=== PATIENT | male | born 1990 | race African-American/Black ===

== ENCOUNTER → 2023-11-28 13:11 | Outpatient (BNVA) | payer OTHER, SELFPAY | PROVIDERS: Visit Provider Physician Assistant Medical | DX: S46.211A Strain of muscle, fascia and tendon of other parts of biceps, right arm, initial encounter (principal); X50.3XXA Overexertion from repetitive movements, initial encounter | CPT/HCPCS: 99202 ==

== ENCOUNTER → 2023-12-01 14:54 | Outpatient (BNVA) | payer OTHER, SELFPAY | PROVIDERS: Visit Provider Registered Nurse | DX: S46.211A Strain of muscle, fascia and tendon of other parts of biceps, right arm, initial encounter (principal); X50.3XXA Overexertion from repetitive movements, initial encounter | CPT/HCPCS: 99213 ==

== ENCOUNTER → 2023-12-13 15:00 | Outpatient (BNVA) | payer OTHER, SELFPAY | PROVIDERS: Visit Provider Registered Nurse | DX: S46.211D Strain of muscle, fascia and tendon of other parts of biceps, right arm, subsequent encounter (principal); X50.3XXD Overexertion from repetitive movements, subsequent encounter | CPT/HCPCS: 99213 ==

== ENCOUNTER 2024-05-01 14:48 | Outpatient (AMB) | payer OTHER, MEDICAID, SELFPAY ==
--- NOTE | 2024-05-01 14:48 | MHC.OFFVIS ---
Vital Signs 05/01/24 14:53 Height 5 ft 7 in Weight 178 lb 9.191 oz BMI 28.0 BP 118/76 Blood Pressure Location Rt brachial Position Sitting Pulse 84 Pulse Source Pulse Oximeter Intake Visit Reasons: Joint Pain/CM Intake Note: NEW Patient presents today to establish treatment for Join Pain: Pain scale 1-10, The patient states that the pain varies: Certified Alcohol And Drug Counselor Required: Yes Certified Alcohol And Drug Counselor Language: Moroccan Certified Alcohol And Drug Counselor Services: Certified Alcohol And Drug Counselor Present Certified Alcohol And Drug Counselor Name: Juan [id number]) Information Interpreted: clinical only Accompanied by: Self / Same As Patient Allergies No Known Allergies Allergy (Verified 05/01/24 15:25) Medication List - Last Reconciled 05/01/24 by Karla Kaye MD diclofenac sodium 1% 2 grams topical QID PRN omeprazole 40 mg PO BID ondansetron HCl 4 mg PO Q8H PRN riboflavin (vitamin B2) 400 mg PO DAILY sumatriptan succinate 25 mg PO ONCE PRN HPI Comments Details: Patient is a 33-year-old male with chronic headaches who presents for evaluation of back pain Patient states that he started having back pain in 2022, at that time he was in [place]. Denies antecedent trauma. Worked in [employer]. The pain is worse at night, making it difficult for him to go to bed. Denies prolonged AM stiffness, middle of night waking. Pain is worse with movement, better with rest. Now the pain occurs when he is working all day or after a long day of work He had an accident at work this Jul 2023 and now has neck and upper arm pain States that at his work he looks down most of the day which he thinks is contributing to his neck pain Denies history of heel pain, dactylitis, psoriasis or rashes, diarrhea. No history of scleritis or eye inflammation [facility] Medical History (Updated 05/01/24 @ 16:09 by Karla Kaye MD) Back pain Headache Arthralgia H. pylori infection Epigastric pain Chronic lower back pain External hemorrhoid Surgical History (Updated 05/01/24 @ 15:04 by NAVIN Delgado) No pertinent past surgical history Family History (Updated 05/01/24 @ 15:05 by NAVIN Delgado) Father No problems noted. Mother No problems noted. Social History (Updated 05/01/24 @ 15:04 by NAVIN Delgado) Alcohol intake: current Alcohol intake frequency: does not drink Patient Tobacco Use Status: Never used Tobacco Review of Systems Const Details: Review of Systems Constitutional: Denies fever, chills, weight loss ENT: Denies vision changes, eye pain or eye redness, dental caries, dry mouth GI: Denies nausea, vomiting, diarrhea, abdominal pain, change in BM Pulm: Denies SOB, MCKINLEY, hemoptysis, wheezing Cards: Denies chest pain, palpitations Skin: Denies Raynaud's, rash, nail changes, photosensitivity, COPPER TAPPER: Denies headaches, weakness, paresthesias, recurrent falls MSK: as per HPI All other systems reviewed and are unremarkable except noted above Physical Exam Vital Signs: Last Vital Signs Pulse 84 05/01/24 14:53 BP 118/76 05/01/24 14:53 BMI result Body Mass Index 28.0 Physical Examination CONSTITUITIONAL Patient alert and cooperative. Well appearing and in no apparent painful distress HEENT Conjunctiva and sclera clear. ?Pupils equal round and reactive to light. ?No lymphadenopathy. ? CHEST/RESPIRATORY SYSTEM Normal respiratory effort and able to speak in complete sentences. ?Clear to auscultation bilaterally. ?No crackles, rales, rhonchi, wheezes heard. CARDIAC SYSTEM Regular rate and rhythm. ?S1 and S2 heard no murmurs. ?Radial pulses intact bilaterally MSK Hands: ?Good insurance agency manager strength bilaterally - 5/5. ?No deformities noted. ?No synovitis noted to the MCPs, PIPs or DIPs. ?No tenderness to palpation of these joints. Wrists: ?Full range of motion at the wrists without pain. ?No tenderness to palpation or synovitis noted to the wrists. Elbows: Full range of motion without pain. No tenderness, weakness, swelling, increased warmth or erythema. Shoulders: Full range of motion without pain. No tenderness, weakness, swelling, increased warmth or erythema. Hips: Full range of motion without pain. Knees: ?Full range of motion. ?No tenderness, swelling, increased warmth or erythema.?No effusion or crepitations Ankles: Full range of motion. ?No tenderness, swelling, increased warmth or erythema.?No tenderness on palpation of the achilles tendon or insertion. Feet: ?Negative squeeze test. ?No tenderness to palpation or swelling of the MTPs. Normal Scober's test SKIN Skin intact without rashes. Results Reviewed Results Reviewed: No results seen Assessment & Plan Assessment & Plan (1) Back pain: Code(s): M54.9 - Dorsalgia, unspecified Category: Medical Qualifiers: Back pain location: low back pain Chronicity: chronic Back pain laterality: midline Sciatica presence: without sciatica Qualified Code(s): M54.50 - Low back pain, unspecified; G89.29 - Other chronic pain Plan: #Back pain At this time, the history and exam is not consistent with ank spojac. He has a normal Eugenio's test and his pain is not improved with movement. Will check SI joint XRs, MRI of SI joints, L spine XR, Neck XR Will check HLA B27, ESR, CRP, CBC, CMP RTC Jun 2024 Plan I spent 45 minutes reviewing the record and labs, seeing the patient, discussing the treatment plan and documenting in the medical record ? Orders: Orders Complete Blood Count Auto Diff Today M54.9 - Dorsalgia, unspecified C Reactive Protein Today M54.9 - Dorsalgia, unspecified T Spot TB Today M54.9 - Dorsalgia, unspecified HLA B27 Today M54.9 - Dorsalgia, unspecified XR lumbar spine 4V min Today M54.9 - Dorsalgia, unspecified XR cervical spine 4V Today M45.9 - Ankylosing spondylitis of unspecified sites in spine MR pelvis wo con Today M45.9 - Ankylosing spondylitis of unspecified sites in spine Rheumatoid Factor Today M25.50 - Pain in unspecified joint Cyclic Citrullinated Peptide Today M25.50 - Pain in unspecified joint Comprehensive Met. Panel Today M54.9 - Dorsalgia, unspecified Erythrocyte Sedimentation Rate Today M54.9 - Dorsalgia, unspecified XR sacroiliac joint min 3V Today M54.9 - Dorsalgia, unspecified Medications: New naproxen 500 mg PO BID 90 days 180 tabs 0RF G89.29 - Other chronic pain, M54.50 - Low back pain, unspecified Coding Level of Care Code New Pt Level 4 (11394) Diagnoses Chronic midline low back pain without sciatica M54.50; G89.29 Back pain location: low back pain Chronicity: chronic Back pain laterality: midline Sciatica presence: without sciatica
[2024-05-01 14:53] VITALS: BP 118/76; PULSE 84; BMI 28.0
== END 2024-05-01 16:18 | disposition home or self-care (01) ==
PROVIDERS: Visit Provider Student in an Organized Health Care Education/Training Program
DX: M54.50 Low back pain, unspecified (principal); G89.29 Other chronic pain
CPT/HCPCS: 99204

== ENCOUNTER → 2024-05-01 14:48 | Outpatient (BNVA) | payer OTHER, SELFPAY | PROVIDERS: Visit Provider Student in an Organized Health Care Education/Training Program | DX: M54.50 Low back pain, unspecified (principal); G89.29 Other chronic pain | CPT/HCPCS: 99202 ==

== ENCOUNTER 2024-05-06 16:21 | Outpatient (REF) | payer OTHER, MEDICAID, SELFPAY ==
[2024-05-06 16:40] LABS: MANUAL DIFF FLAG NO
[2024-05-06 17:11] LABS: Basophils Absolute Auto 0.1 X10*3/uL (0.0-0.2); Basophils Percent Auto 1.1 % (0-2); Eosinophils Absolute Auto 0.1 X10*3/uL (0.0-0.4); Eosinophils Percent Auto 2.3 % (0-4); Hematocrit 42.7 % (42.0-52.0); Hemoglobin 14.7 g/dl (14.0-18.0); Imm Gran Abs Auto 0.01 X10*3/uL (0.00-0.03); Imm Gran Pct Auto 0.2 % (0.0-0.4); Lymphocytes Absolute Auto 2.3 X10*3/uL (1.2-4.9); Lymphocytes Percent Auto 47.8 % (20-40); Mean Corpuscular HGB Conc 34.4 g/dl (31.0-36.0); Mean Corpuscular Hemoglobin 27.5 pg (27.0-33.0); Monocytes Absolute Auto 0.4 X10*3/uL (0.1-1.2); Monocytes Percent Auto 9.1 % (2-11); Neutrophils Absolute Auto 1.9 x10*3/uL (2.0-8.3); Neutrophils Percent Auto 39.5 % (45-73); Platelet Count 275 X10*3/uL (160-400); Red Blood Count 5.34 X10*6/uL (4.60-5.80); Red Cell Distribution Width 11.9 % (11.0-16.0); White Blood Count 4.7 X10*3/uL (4.8-10.8)
[2024-05-06 17:49] LABS: Alanine Aminotransferase 43 U/L (0-40); Albumin Level 4.7 g/dL (3.5-5.0); Alkaline Phosphatase 90 U/L (39-117); Anion Gap 12 (12-20); Aspartate Amino Transferase 27 U/L (5-37); Bilirubin Total 0.3 mg/dL (0.0-1.0); Blood Urea Nitrogen 11 mg/dL (9-16); C Reactive Protein < 0.10 mg/dL (< or = 0.50); Calcium 9.8 mg/dL (8.4-10.2); Carbon Dioxide 26 mmol/L (22-29); Chloride 106 mmol/L (96-108); Estimated Glomerular Filt Rate > 60; Glucose Random 97 mg/dL (60-115); Potassium 4.2 mmol/L (3.3-5.1); Sodium 140 mmol/L (135-145); Total Protein 7.8 g/dL (6.5-8.0)
[2024-05-06 17:52] LABS: Rheumatoid Factor < 13.0 IU/mL (<15.0)
[2024-05-06 18:03] LABS: Erythrocyte Sedimentation Rate 2 MM/HR (0-15)
[2024-05-08 07:43] LABS: Cyclic Citrullinated Peptide 57 UNITS
[2024-05-09 08:14] LABS: TS Negative Control Passed; TS Panel A 131; TS Panel B 199; TS Positive Control Passed; TSpotTB Positive (Negative)
[2024-05-09 11:14] LABS: HLA B27 Negative (Negative)
== END 2024-05-06 16:22 | disposition home or self-care (01) ==
LOC: HO.XRAY 16:21
PROVIDERS: PCP Internal Medicine; Visit Provider Student in an Organized Health Care Education/Training Program
DX: M54.9 Dorsalgia, unspecified (principal); M25.50 Pain in unspecified joint; M45.9 Ankylosing spondylitis of unspecified sites in spine
CPT/HCPCS: 36415; 72050; 72110; 72202; 80053; 85025; 85652; 86140; 86200; 86431; 86481; 86812

== ENCOUNTER 2024-05-28 15:52 | Outpatient (REF) | payer MEDICAID, SELFPAY | END 2024-05-28 15:53 | disposition home or self-care (01) | LOC: HO.MRI 15:52 | PROVIDERS: PCP Internal Medicine; Visit Provider Student in an Organized Health Care Education/Training Program | DX: M45.9 Ankylosing spondylitis of unspecified sites in spine (principal) | CPT/HCPCS: 72195 ==

== ENCOUNTER → 2024-07-03 14:24 | Outpatient (BNVA) | payer MEDICAID, OTHER, SELFPAY | PROVIDERS: PCP Internal Medicine; Visit Provider Student in an Organized Health Care Education/Training Program | DX: M54.50 Low back pain, unspecified (principal); G89.29 Other chronic pain; R51.9 Headache, unspecified; R76.8 Other specified abnormal immunological findings in serum | CPT/HCPCS: 99212 ==